=== PATIENT | female | born 1965 | race Hispanic/Latino ===

== ENCOUNTER 2016-07-19 09:41 | Emergency (ER) | payer SELFPAY ==
[2016-07-19] MEDS ORDERED: Lorazepam 1 MG TAB ONE (10:19)
[2016-07-19 10:36] LABS: #Basophils 0.1 thou/uL (0.0-0.2); #Eosinphils 0.1 thou/uL (0.0-0.7); #Lymphocytes 1.2 thou/uL (1.20-3.40); #Monocytes 0.4 thou/uL (0.11-0.59); #Neutrophils 2.7 thou/uL (1.40-6.50); %Basophils 1.4 % (0.0-1.0); %Eosinophils 2.3 % (0.0-10.0); %Lymphocytes 26.4 % (21.0-51.0); Hematocrit 37.2 % (36.0-47.0); Mean Platelet Volume 6.4 fL (7.4-10.4); Red Blood Cell (RBC) Count 4.23 mill/uL (4.20-5.40); White Blood Cell (WBC) Count 4.4 thou/uL (4.8-10.8)
[2016-07-19 10:46] LABS: ALT (SGPT) 31 U/L (0-55); AST (SGOT) 30 U/L (5-34); Alkaline Phosphatase 86 U/L (40-150); Anion Gap 12 mmol/L (10-20); BUN (Urea Nitrogen) 16 mg/dL (7.0-18.7); Bilirubin, Total 0.4 mg/dL (0.2-1.2); Calc. Creatinine Clearance 0 mL/min (70-130); Calcium 8.9 mg/dL (7.8-10.44); Carbon Dioxide 21 mmol/L (22-29); Chloride 110 mmol/L (98-107); Estimated GFR-MDRD 83; Globulin 3.4 g/dL (2.4-3.5); Protein, Total 7.1 g/dL (6.0-8.3)
--- NOTE | 2016-07-19 10:47 | RAD ---
CHEST 2 VIEWS: Date: 07/19/16 HISTORY: Chest pain. COMPARISON: 02/04/16. FINDINGS: Normal cardiac silhouette. Pulmonary vessels and hilum are normal. Costophrenic angles are clear. No mass or consolidation. No pneumothorax or osseous abnormalities. IMPRESSION: No acute cardiopulmonary process. POS: [facility]
[2016-07-19 10:48] LABS: Troponin I 0.016 ng/mL (< 0.028)
--- NOTE | 2016-07-19 11:56 | ERRECORD ---
[facility] EMERGENCY RECORD HPI ANXIETY (11:27 PMYE) CHIEF COMPLAINT: Patient presents for evaluation of anxiety. HISTORIAN: History provided by patient. LOCATION: Symptoms are generalized. QUALITY: Patient is alert and oriented to person, place and time. SEVERITY: Maximum severity of symptoms moderate, Currently symptoms are mild, 51 y/o F w/ hx of panic attacks. 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 Symptoms similar to prior episodes of panic attacks. TIME COURSE: Gradual onset of symptoms, Symptoms are improving. ASSOCIATED WITH: No associated symptoms. EXACERBATED BY: Patient's condition exacerbated by nothing. RELIEVED BY: Patient's condition relieved by nothing. ROS (11:30 PMYE) CONSTITUTIONAL: Negative constitutional review of systems, Historian denies chills, denies fatigue, denies fever. EYES: Negative eye review of systems, Historian denies eye pain, denies eye redness, denies eye discharge. ENT: Negative ears, nose, throat review of systems, Historian denies dysphasia, denies epistaxis, denies otalgia, denies sore throat. CARDIOVASCULAR: Negative cardiovascular review of systems, Historian denies chest pain, denies dyspnea on exertion, denies syncope, denies palpitations. Historian denies chest pain, denies dyspnea on exertion, denies syncope. RESPIRATORY: Historian denies cough, reports shortness of breath, denies wheezing. GI: Negative gastrointestinal review of systems, Historian denies abdominal pain, denies constipation, denies diarrhea, denies nausea, denies vomiting. GENITOURINARY FEMALE: Negative genitourinary review of systems, Historian denies dysuria, denies urgency, denies vaginal bleeding, denies vaginal discharge. MUSCULOSKELETAL: Historian denies arthralgias, denies myalgias. SKIN: Negative skin review of systems, Historian denies rash, denies skin changes. NEUROLOGIC: Negative neurologic review of systems, Historian denies confusion, denies focal weakness, denies headache. PSYCHIATRIC: Negative psychiatric review of systems. PAST MEDICAL HISTORY (09:54 [facility]) MEDICAL HISTORY: No past medical history. FEMALE SURGICAL HISTORY: Surgical history of cholecystectomy. PSYCHIATRIC HISTORY: Notes: panic attacks, anxiety. SOCIAL HISTORY: Patient denies alcohol use, Patient denies drug use, Patient has no smoking history. &a-1R&a+25V*p+0X*u6203O*c202B*c15G*c2P*p-0X&a-25V&a+1R Name: Tara Amato : 1965 F51 MedRec: [id number] AcctNum: [id number] Prepared: TueJul 19, 2016 17:59 by Interface Page 1 of 3 pMD [facility] EMERGENCY RECORD KNOWN ALLERGIES No Known Drug Allergies CURRENT MEDICATIONS (09:59 [facility]) Ativan: TABLET : Strength - 1 mg : ORAL Patient Dose: 1 tab(s) Oral As Needed.as needed for anxiety; pt says she doesn't take it regularly, because it makes her "feel weird". VITAL SIGNS VITAL SIGNS: BP: 121/64, Pulse: 83, Resp: 32, Temp: 98.2 (Oral), Pain: 2, O2 sat: 100 on Room Air, Time: 07/19/2016 09:49. (09:49 [facility]) BP: 111/59, Pulse: 83, Resp: 18, Temp: 98.1 (Oral), Pain: 2, O2 sat: 96 on Room Air, Time: 07/19/2016 10:46. (10:46 [facility]) BP: 108/55, Pulse: 79, Resp: 16, O2 sat: 97, Time: 07/19/2016 11:46. (11:46 [facility]) PHYSICAL EXAM (11:30 PMYE) CONSTITUTIONAL: Vital Signs Reviewed, Patient afebrile, Pulse normal, Blood pressure normal, Respiratory rate normal, Patient appears non toxic. HEAD: Head exam included findings of head atraumatic, normocephalic. EYES: Eye exam included findings of eyelids normal to inspection, Pupils equally round and reactive to light, Extraocular muscles intact. ENT: ENT exam normal, Pharynx exam normal, Uvula exam normal, Tonsil exam normal. NECK: Neck exam normal. RESPIRATORY CHEST: Respiratory and chest exam normal, Breath sounds clear, No wheezing, No rales. ABDOMEN FEMALE: Abdominal exam normal, Abdominal exam included findings of abdomen nontender, Bowel sounds normal. BACK: Back exam normal. NEURO: Neuro exam normal, [place] coma scale 15, Neuro exam findings include patient oriented to person, place and time, Speech normal. SKIN: Skin exam normal. PSYCHIATRIC: Psychiatric exam normal, Psychiatric exam included findings of patient oriented to person place and time, Normal affect. EKG INTERPRETATION (11:33 PMYE) MONITOR STRIP: NSR 84 BPM normal axis, intervals , no st t wave changes. MEDICATION ADMINISTRATION SUMMARY Drug Name: Ativan oral, Dose Ordered: 1 mg, Route: Oral, Status: Given, Time: 10:20 07/19/2016, Detailed record available in Medication &a-1R&a+25V*p+0X*z4172R*c202B*c15G*c2P*p-0X&a-25V&a+1R Name: Tara Amato : 1965 F51 MedRec: [id number] AcctNum: [id number] Prepared: TueJul 19, 2016 17:59 by Interface Page 2 of 3 pMD [facility] EMERGENCY RECORD Service section. DOCTOR NOTES TEXT: Hx and exam strongly suggestive of anxiety. Improved w/ Ativan here. Will provide symptomatic PRN meds and pt will f/u w/ PCP. (11:34 PMYE) Pt low risk for PE via Wells Criteria. PERC negative. (11:38 PMYE) PROBLEM LIST No recorded problems DIAGNOSIS (11:35 PMYE) FINAL: PRIMARY: Anxiety. PRESCRIPTION (11:38 PMYE) Ativan oral: TABLET : 1 mg : ORAL : Quantity: 1 Unit: mg Route: ORAL Schedule: every 6 hours PRN Dispense: 20 Unit: tab(s) May substitute. Refills: No Refills . NOTES: No Refills. DISPOSITION PATIENT: Disposition Type: Discharge, Disposition: *Discharge Home. (11:35 PMYE) Patient left the department. (11:51 JPAR) Dodson: MARC=CROW Bhatti Jason PMYE=DO Evangelista Paul [facility]=CROW Nolen, Misa &a-1R&a+25V*p+0X*[id number]*c202B*c15G*c2P*p-0X&a-25V&a+1R Name: Tara Amato : 1965 F51 MedRec: [id number] AcctNum: [id number] Prepared: TueJul 19, 2016 17:59 by Interface Page 3 of 3 pMD MTDD
--- NOTE | 2016-07-19 12:03 | PICIS ---
[facility] EMERGENCY RECORD TRIAGE (09:52 [facility]) TRIAGE NOTES: Pt presenting with quick, shallow respirations and saying her upper back and chest are hurting. Pt is now breathing slowly and regularly into an emesis bag and VSS. Pt reports feeling dizzy and weak earlier this AM while at work. Pt reports eating usual breakfast. Pt has hx of panic attacks. (09:52 [facility]) PATIENT: NAME: Tara Amato, AGE: 51, GENDER: female, : Sat 1965, TIME OF GREET: TueJul 19, 2016 09:42, PREFERRED LANGUAGE: Pashto, ETHNICITY: or , ECODE BILLING MAP: [facility], Zip Code: [address], PHONE: , , , PERSON ID: [id number], PCP: none. (09:52 [facility]) KG WEIGHT: 70.8 (est.). (10:09 J[facility]) COMPLAINT: PANIC ATTACK. (09:52 [facility]) ADMISSION: URGENCY: 4 Non Urgent, ADMISSION SOURCE: Work, TRANSPORT: Walk-in, BED: TRIAGE. (09:52 [facility]) IMMUNIZATIONS: Flu vaccine not up to date, Tetanus not up to date. (09:54 [facility]) SIRS SCORING: Heart Rate 55-109 (0), Temp range 96.8-101.1 (0), respiratory rate 25-34 (1), Mental Status altered: no (0). (09:54 [facility]) TRIAGE SCREENING: Patient denies suicidal ideation, Patient denies presence of domestic violence. (09:54 [facility]) PROVIDERS: TRIAGE NURSE: Misa Nolen RN. (09:52 [facility]) VITAL SIGNS: BP 121/64, Pulse 83, Resp 32, Temp 98.2, (Oral), Pain 2, O2 Sat 100, on Room Air, Time 07/19/2016 09:49. (09:49 [facility]) PREVIOUS VISIT ALLERGIES: No Known Drug Allergies. (09:52 [facility]) No Known Drug Allergies. (09:54 [facility]) KNOWN ALLERGIES No Known Drug Allergies CURRENT MEDICATIONS (09:59 [facility]) Ativan: TABLET : Strength - 1 mg : ORAL Patient Dose: 1 tab(s) Oral As Needed.as needed for anxiety; pt says she doesn't take it regularly, because it makes her "feel weird". VITAL SIGNS VITAL SIGNS: BP: 121/64, Pulse: 83, Resp: 32, Temp: 98.2 (Oral), Pain: 2, O2 sat: 100 on Room Air, Time: 07/19/2016 09:49. (09:49 [facility]) BP: 111/59, Pulse: 83, Resp: 18, Temp: 98.1 (Oral), Pain: 2, O2 sat: 96 on Room Air, Time: 07/19/2016 10:46. (10:46 [facility]) BP: 108/55, Pulse: 79, Resp: 16, O2 sat: 97, Time: 07/19/2016 11:46. (11:46 [facility]) NURSING ASSESSMENT: PSYCH/SOCIAL (09:56 [facility]) CONSTITUTIONAL: Complex assessment performed, Patient arrives &a-1R&a+25V*p+0X*g8165K*c202B*c15G*c2P*p-0X&a-25V&a+1R Name: Tara Amato : 1965 F51 MedRec: [id number] AcctNum: [id number] Prepared: TueJul 19, 2016 18:07 by Interface Page 1 of 8 pMD [facility] EMERGENCY RECORD ambulatory, Gait steady, History obtained from patient, Patient appears comfortable, Patient cooperative, Patient alert, Oriented to person, place and time, Skin warm, Skin dry, Skin normal in color, Mucous membranes pink, Mucous membranes moist, Patient is well-groomed, Pt's daughter reports pt began having a panic attack this AM while at work. She has a hx of this, but denies any other medical problems. Pt reporting upper back and chest pain, and was very tachypneic upon arrival. After breathing into an emesis bag for approximately 2 minutes, pt's respirations slowed to an even, regular rate and rhythm. Other VSS, will continue to monitor. PSYCH/SOCIAL: Psychiatric/social assessment findings include affect normal, no complaint of visual hallucinations, no complaint of auditory hallucinations, no complaint of tactile hallucinations, no suicidal ideations, no homicidal ideations, no reported overdose. SAFETY: Side rails up, Cart/Stretcher in lowest position, Family at bedside, Call light within reach, Hospital ID band on. NURSING PROCEDURE: DISCHARGE NOTE (11:46 JPAR) DISCHARGE: Patient discharged to home, ambulating without assistance, family driving, accompanied by other family member, Summary of Care printed/ provided, Patient requested and was provided an electronic copy of Discharge Instructions, Transition record given to patient, Discharge instructions given to patient, Simple or moderate discharge teaching performed, Prescriptions given and instructions on side effects given, Name of prescription(s) given: Ativan, Medication reconciliation form given, Above person(s) verbalized understanding of discharge instructions and follow-up care, Patient treated and evaluated by physician. BELONGINGS: Belongings and valuables with patient at time of discharge include:, Belongings remain with patient, Valuables remain with patient. SAFETY: Side rails up, Cart/Stretcher in lowest position, Family at bedside, Call light within reach, Hospital ID band on. VITAL SIGNS: BP: 108, / 55, Pulse: 79, Resp: 16, O2 sat: 97. NURSING PROCEDURE: EKG CHART (10:15 JPAR) PATIENT IDENTIFIER: Patient actively involved in identification process, Patient's identity verified by patient stating name, Patient's identity verified by patient stating date, Patient's identity verified by hospital ID bracelet, Patient's identity verified by family member. EKG: EKG indicated for complaint of chest pain, EKG indicated for Anxiety Attack, 12 lead EKG performed on the left chest, done by Sebastien JIN, first EKG. FOLLOW-UP: After procedure, EKG for interpretation given to Dr. Evangelista. SAFETY: Side rails up, Cart/Stretcher in lowest position, Family at bedside, Call light within reach, Hospital ID band on. NURSING PROCEDURE: LAB DRAW (10:16 [facility]) &a-1R&a+25V*p+0X*b4754F*c202B*c15G*c2P*p-0X&a-25V&a+1R Name: Tara Amato : 1965 F51 MedRec: [id number] AcctNum: [id number] Prepared: TueJul 19, 2016 18:07 by Interface Page 2 of 8 pMD [facility] EMERGENCY RECORD LAB DRAW: Initial lab draw performed, by venipuncture, from left antecubital, in one attempt, Lab specimens labeled in the presence of the patient and sent to lab. FOLLOW-UP: After procedure, dressing applied to site. SAFETY: Side rails up, Cart/Stretcher in lowest position, Family at bedside, Call light within reach, Hospital ID band on. NURSING PROCEDURE: NURSE NOTES (09:53 [facility]) NURSES NOTES: Notes: Pt placed in bed and provided with emesis bag to slow respirations. Lights in room turned low, and comfort measures provided. Will continue to monitor. NURSING PROCEDURE: TRANSPORT TO TESTS TRANSPORT TO TESTS: Transport indicated to facilitate diagnosis, Patient transported to x-ray, ambulatory, Accompanied by x-ray filter changing technician, Transported with advanced life support care. (10:21 [facility]) FOLLOW-UP: After procedure, patient returned to emergency department. (10:25 [facility]) ORDER DETAILS Order Name: Cardiac Profile w/CKMB & Troponin - I, Status: Active, Time: 10:07/19/2016, User: PMYE, - Ordered for: DO Evangelista Paul, - Entered by: DO Evangelista Paul - [facility] Jul 19, 2016 10:09, - Quantity: 1, Order Name: CBC with Differential, Status: Active, Time: 10:07/19/2016, User: PMYE, - Ordered for: DO Evangelista Paul, - Entered by: DO Evangelista Paul - [facility] Jul 19, 2016 10:09, - Quantity: 1, Order Name: Comprehensive Metabolic Panel, Status: Active, Time: 10:07/19/2016, User: PMYE, - Ordered for: DO Evangelista Paul, - Entered by: DO Evangelista Paul - [facility] Jul 19, 2016 10:09, - Quantity: 1, Order Name: EKG 12 Lead in Emergency Room, Status: Active, Time: 10:07/19/2016, User: PMYE, - Ordered for: DO Evangelista Paul, - Entered by: DO Evangelista Paul - [facility] Jul 19, 2016 10:09, - Quantity: 1, Order Name: XR Chest Pa & Lat STANDARD, Status: Active, Time: 10:07/19/2016, User: PMYE, - Ordered for: DO Evangelista Paul, - Entered by: DO Evangelista Paul - TueJul 19, 2016 10:09, - Quantity: 1. MEDICATION ADMINISTRATION SUMMARY Drug Name: Ativan oral, Dose Ordered: 1 mg, Route: Oral, Status: &a-1R&a+25V*p+0X*k4069Q*c202B*c15G*c2P*p-0X&a-25V&a+1R Name: Tara Amato : 1965 F51 MedRec: [id number] AcctNum: [id number] Prepared: TueJul 19, 2016 18:07 by Interface Page 3 of 8 pMD [facility] EMERGENCY RECORD Given, Time: 10:20 07/19/2016, Detailed record available in Medication Service section. MEDICATION SERVICE (10:20 PMYE) Ativan oral: Order: Ativan oral (lorazepam) - Dose: 1 mg : Oral Ordered by: Kali Evangelista DO Entered by: Kali Evangelista DO TueJul 19, 2016 10:18 , Acknowledged by: Misa Nolen RN TueJul 19, 2016 10:18 Documented as given by: Misa Nolen RN TueJul 19, 2016 10:20 Patient, Medication, Dose, Route and Time verified prior to administration. Amount given: 1 mg, Site: Medication administered P.O., Correct patient, time, route, dose and medication confirmed prior to administration, Patient advised of actions and side-effects prior to administration, Allergies confirmed and medications reviewed prior to administration, Patient tolerated procedure well, Administered by CROW Bynum, Patient in position of comfort, Side rails up, Cart in lowest position, Family at bedside, Call light in reach. HPI ANXIETY (11:27 PMYE) CHIEF COMPLAINT: Patient presents for evaluation of anxiety. HISTORIAN: History provided by patient. LOCATION: Symptoms are generalized. QUALITY: Patient is alert and oriented to person, place and time. SEVERITY: Maximum severity of symptoms moderate, Currently symptoms are mild, 51 y/o F w/ hx of panic attacks. 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 Symptoms similar to prior episodes of panic attacks. TIME COURSE: Gradual onset of symptoms, Symptoms are improving. ASSOCIATED WITH: No associated symptoms. EXACERBATED BY: Patient's condition exacerbated by nothing. RELIEVED BY: Patient's condition relieved by nothing. ROS (11:30 PMYE) CONSTITUTIONAL: Negative constitutional review of systems, Historian denies chills, denies fatigue, denies fever. EYES: Negative eye review of systems, Historian denies eye pain, denies eye redness, denies eye discharge. ENT: Negative ears, nose, throat review of systems, Historian denies dysphasia, denies epistaxis, denies otalgia, denies sore throat. CARDIOVASCULAR: Negative cardiovascular review of systems, Historian denies chest pain, denies dyspnea on exertion, denies syncope, denies palpitations. Historian denies chest pain, denies dyspnea on exertion, denies syncope. RESPIRATORY: Historian denies cough, reports shortness of breath, denies wheezing. GI: Negative gastrointestinal review of systems, Historian denies &a-1R&a+25V*p+0X*w8492Y*c202B*c15G*c2P*p-0X&a-25V&a+1R Name: Tara Amato : 1965 F51 MedRec: [id number] AcctNum: [id number] Prepared: TueJul 19, 2016 18:07 by Interface Page 4 of 8 pMD [facility] EMERGENCY RECORD abdominal pain, denies constipation, denies diarrhea, denies nausea, denies vomiting. GENITOURINARY FEMALE: Negative genitourinary review of systems, Historian denies dysuria, denies urgency, denies vaginal bleeding, denies vaginal discharge. MUSCULOSKELETAL: Historian denies arthralgias, denies myalgias. SKIN: Negative skin review of systems, Historian denies rash, denies skin changes. NEUROLOGIC: Negative neurologic review of systems, Historian denies confusion, denies focal weakness, denies headache. PSYCHIATRIC: Negative psychiatric review of systems. PAST MEDICAL HISTORY (09:54 [facility]) MEDICAL HISTORY: No past medical history. FEMALE SURGICAL HISTORY: Surgical history of cholecystectomy. PSYCHIATRIC HISTORY: Notes: panic attacks, anxiety. SOCIAL HISTORY: Patient denies alcohol use, Patient denies drug use, Patient has no smoking history. PHYSICAL EXAM (11:30 PMYE) CONSTITUTIONAL: Vital Signs Reviewed, Patient afebrile, Pulse normal, Blood pressure normal, Respiratory rate normal, Patient appears non toxic. HEAD: Head exam included findings of head atraumatic, normocephalic. EYES: Eye exam included findings of eyelids normal to inspection, Pupils equally round and reactive to light, Extraocular muscles intact. ENT: ENT exam normal, Pharynx exam normal, Uvula exam normal, Tonsil exam normal. NECK: Neck exam normal. RESPIRATORY CHEST: Respiratory and chest exam normal, Breath sounds clear, No wheezing, No rales. ABDOMEN FEMALE: Abdominal exam normal, Abdominal exam included findings of abdomen nontender, Bowel sounds normal. BACK: Back exam normal. NEURO: Neuro exam normal, [place] coma scale 15, Neuro exam findings include patient oriented to person, place and time, Speech normal. SKIN: Skin exam normal. PSYCHIATRIC: Psychiatric exam normal, Psychiatric exam included findings of patient oriented to person place and time, Normal affect. EVENTS TRANSFER: Triage to Emergency Triage. (TueJul 19, 2016 09:52 [facility]) Emergency Triage to Emergency Room -03. (09:52 [facility]) Removed from Emergency Emergency Room -03. (11:51 [facility]) &a-1R&a+25V*p+0X*l5408P*c202B*c15G*c2P*p-0X&a-25V&a+1R Name: Tara Amato : 1965 F51 MedRec: [id number] AcctNum: [id number] Prepared: TueJul 19, 2016 18:07 by Interface Page 5 of 8 pMD [facility] EMERGENCY RECORD EKG INTERPRETATION (11:33 PMYE) MONITOR STRIP: NSR 84 BPM normal axis, intervals , no st t wave changes. DOCTOR NOTES TEXT: Hx and exam strongly suggestive of anxiety. Improved w/ Ativan here. Will provide symptomatic PRN meds and pt will f/u w/ PCP. (11:34 PMYE) Pt low risk for PE via [facility] Criteria. PERC negative. (11:38 PMYE) PROBLEM LIST No recorded problems DIAGNOSIS (11:35 PMYE) FINAL: PRIMARY: Anxiety. DISPOSITION PATIENT: Disposition Type: Discharge, Disposition: *Discharge Home. (11:35 PMYE) Patient left the department. (11:51 [facility]) INSTRUCTION (11:38 PMYE) DISCHARGE: ANXIETY REACTION. FOLLOWUP: [facility], [facility] , , Follow up with Primary Care Physician in 1-2 days. SPECIAL: Follow-up with your PCP. PRESCRIPTION (11:38 PMYE) Ativan oral: TABLET : 1 mg : ORAL : Quantity: 1 Unit: mg Route: ORAL Schedule: every 6 hours PRN Dispense: 20 Unit: tab(s) May substitute. Refills: No Refills . NOTES: No Refills. IMAGING *SUPPLY CHARGE SHEET: Image captured from scanner. (11:49 JPAR) *DISCHARGE INSTRUCTIONS RECEIPT: Image captured from scanner. (11:50 JPAR) ADMIN DIGITAL SIGNATURE: CROW Bhatti, Sebastien. (11:51 JPAR) DO Evangelista Paul. (17:59 PMYE) RESULTS LABORATORY: Comprehensive Metabolic Panel Collection DT: TueJul 19, 2016 10:36, Sodium 139 mmol/L, Range (136-145), Potassium 3.8 mmol/L, Range (3.5-5.1), &a-1R&a+25V*p+0X*f8616G*c202B*c15G*c2P*p-0X&a-25V&a+1R Name: Tara Amato : 1965 F51 MedRec: [id number] AcctNum: [id number] Prepared: TueJul 19, 2016 18:07 by Interface Page 6 of 8 pMD [facility] EMERGENCY RECORD *Chloride 110 - H mmol/L, Range (98-107), *Carbon Dioxide 21 - L mmol/L, Range (22-29), Anion Gap 12 mmol/L, Range (10-20), BUN (Urea Nitrogen) 16 mg/dL, Range (7.0-18.7), Creatinine 0.74 mg/dL, Range (0.6-1.1), Estimated GFR-MDRD 83 , Reference Range for Estimated GFR: Greater than 90, mL/min/1.73 m2 NOTE: The MDRD equation has not been validated for use, with the elderly (over 70 years of age), women, patients with, serious comorbid condition or persons with extremes of body size, muscle, mass, or nutritional status. , *Glucose 123 - H mg/dL, Range (70-105), Calcium 8.9 mg/dL, Range (7.8-10.44), Bilirubin, Total 0.4 mg/dL, Range (0.2-1.2), Protein, Total 7.1 g/dL, Range (6.0-8.3), NOTE: Plasma values are generally 0.3 to 0.5 g/dL higher than serum values, due to the presence of fibrinogen. , Albumin 3.7 g/dL, Range (3.5-5.0), Globulin 3.4 g/dL, Range (2.4-3.5), *Alb/Glob Ratio 1.1 - L g/dL, Range (1.2-2.2), Alkaline Phosphatase 86 U/L, Range (40-150), AST (SGOT) 30 U/L, Range (5-34), ALT (SGPT) 31 U/L, Range (0-55). (10:48 J[facility]) CBC with Differential Collection DT: TueJul 19, 2016 10:36, *White Blood Cell (WBC) Count 4.4 - L thou/uL, Range (4.8-10.8), Red Blood Cell (RBC) Count 4.23 mill/uL, Range (4.20-5.40), Hemoglobin 12.2 g/dL, Range (12.0-16.0), Hematocrit 37.2 %, Range (36.0-47.0), Mean Corpuscular Volume 87.9 fl, Range (81.0-99.0), Mean Corpuscular Hemoglobin 28.9 pg, Range (27.0-31.0), Mean Corpuscular HGB CONC 32.9 g/dL, Range (32.0-36.0), RBC Distribution Width 12.8 %, Range (11.5-14.5), *Platelet Count 80 - L thou/uL, Range (130-400), *Mean Platelet Volume 6.4 - L fL, Range (7.4-10.4), %Neutrophils 61.9 %, Range (42.0-75.0), %Lymphocytes 26.4 %, Range (21.0-51.0), %Monocytes 8.0 %, Range (0.0-10.0), %Eosinophils 2.3 %, Range (0.0-10.0), *%Basophils 1.4 - H %, Range (0.0-1.0), #Neutrophils 2.7 thou/uL, Range (1.40-6.50), #Lymphocytes 1.2 thou/uL, Range (1.20-3.40), #Monocytes 0.4 thou/uL, Range (0.11-0.59), #Eosinphils 0.1 thou/uL, Range (0.0-0.7), #Basophils 0.1 thou/uL, Range (0.0-0.2). (10:48 [facility]) Cardiac Profile w/CKMB & TropI Collection DT: TueJul 19, 2016 10:36, CKMB 2.2 ng/mL, Range (0-6.6), Troponin I 0.016 ng/mL, Range (< 0.028), Reference Range &a-1R&a+25V*p+0X*y2764B*c202B*c15G*c2P*p-0X&a-25V&a+1R Name: Tara Amato : 1965 11 MedRec: [id number] AcctNum: [id number] Prepared: TueJul 19, 2016 18:07 by Interface Page 7 of 8 pMD [facility] EMERGENCY RECORD , 0.00 - 0.028 ng/mL Negative 0.029 - 0.29 ng/mL , Indeterminate Greater or Equal to 0.3 ng/mL Strongly suggests [place] , . (11:26 PMYE) Dodson: MARC=CROW Bhatti Jason PMYE=DO Evangelista Paul [facility]=CROW Nolen, Misa &a-1R&a+25V*p+0X*o4143E*c202B*c15G*c2P*p-0X&a-25V&a+1R Name: Tara Amato : 1965 11 MedRec: [id number] AcctNum: [id number] Prepared: Jovana Jul 19, 2016 18:07 by Interface Page 8 of 8 pMD [facility]
== END 2016-07-19 11:46 | disposition home or self-care (01) ==
LOC: NAV ERS 09:41
DX: F41.9 Anxiety disorder, unspecified (principal)
CPT/HCPCS: 36415; 71020; 80053; 82553; 84484; 85025; 93005

== ENCOUNTER 2020-07-02 23:31 | Emergency (ER) | payer SELFPAY ==
[2020-07-02] MEDS ORDERED: Acetaminophen 500 MG TAB ONE (23:53)
[2020-07-03 16:46] LABS: SARS-CoV-2 MS2 Positive; SARS-CoV-2 N Gene Positive; SARS-CoV-2 S Gene Positive; SARS-CoV-2 by NAA DETECTED (NotDetected); SARS-CoV-2 orf1ab Positive
== END 2020-07-03 00:40 | disposition home or self-care (01) ==
LOC: NAV ERS 23:31
DX: U07.1 COVID-19 (principal); J06.9 Acute upper respiratory infection, unspecified
CPT/HCPCS: 87081; 87430; 87635; 87804; 99283; U0003